=== PATIENT | male | born 2000 | race Native Hawaiian/Other Pacific Islander ===

== ENCOUNTER 2019-10-01 20:20 | Emergency (ER) | payer OTHER ==
[~2019-10-01] VITALS: Ht 167.6 cm; Wt 80.3 kg
[2019-10-01 20:24] VITALS: BP 140/81
== END 2019-10-01 21:57 | disposition home or self-care (01) ==
LOC: M ED 20:20
DX: Z00.00 Encounter for general adult medical examination without abnormal findings (principal)